=== PATIENT | male | born 1960 | race Caucasian/White ===

== ENCOUNTER → 2023-12-21 11:09 | Outpatient (REF) | payer BC, SELFPAY | LOC: RAD 11:09 | PROVIDERS: ATTENDING PHYSICIAN Orthopaedic Surgery; FAMILY PHYSICIAN Family Medicine | DX: S43.421D Sprain of right rotator cuff capsule, subsequent encounter (principal); M75.21 Bicipital tendinitis, right shoulder | CPT/HCPCS: 76882 ==